=== PATIENT | male | born 1955 | race Caucasian/White ===

== ENCOUNTER → 2018-04-05 | Outpatient (CLI) | payer BC | END | disposition home or self-care (01) | LOC: ECHO 12:41 | DX: I08.2 Rheumatic disorders of both aortic and tricuspid valves (principal); R01.1 Cardiac murmur, unspecified | CPT/HCPCS: 93306 ==

== ENCOUNTER → 2019-08-27 | Outpatient (CLI) | payer BC ==
[2015-09-17 08:57] VITALS: BP 145/68
[~2019-08-27] MED LIST: ATOR20TA PO; DIVA500T2 PO; FOLI1TAB16 PO; PIOG30TA41 PO; RIVA10TA PO; VALS1TAB14 PO
--- NOTE | 2019-08-27 12:53 | CARD ---
MR#: [id number] Date of Study: 08/27/2019 Ordering Physician: JANICE MILES, Referring Physician: JANICE MILES, Tech: Isa Freeman APPROVED REPORT EXAM: Two-dimensional and M-mode echocardiogram with Doppler and color Doppler. Other Information Quality : AverageHR: 62bpm INDICATION Aortic Valve Disease RISK FACTORS Hypertension Hyperlipidemia Diabetes Smoking 2D DIMENSIONS RVDd2.3 (2.9-3.5cm)Left Atrium(2D)4.0 (1.6-4.0cm) IVSd0.9 (0.7-1.1cm)Aortic Root(2D)2.1 (2.0-3.7cm) LVDd5.2 (3.9-5.9cm)LVOT Diameter1.9 (1.8-2.4cm) PWd1.0 (0.7-1.1cm)LVDs3.9 (2.5-4.0cm) FS (%) 25.6 %SV66.0 ml LVEF(%)50.1 (>50%) Aortic Valve AoV Peak Fidel.369.9cm/sAoV VTI98.8cm AO Peak GR.51.6mmHgLVOT Peak Fidel.98.1cm/s AO Mean GR.34mmHg Mitral Valve MV E Upnwuwtb643.1cm/sMV DECEL [id number] MV A Qzdadwuk898.8cm/sE/A Ratio1.3 Pulmonary Valve PV Peak Raigkkwx08.8cm/s Tricuspid Valve TR P. Fypivtzi760qg/sRAP [id number] TR Peak Gr.62wqOvQUTW05eqSi LEFT VENTRICLE The left ventricle is normal size. There is borderline concentric left ventricular hypertrophy. The l eft ventricular systolic function is normal. The Ejection Fraction is 50-55%. There is normal LV segm ental wall motion. Transmitral Doppler flow pattern is Grade II-pseudonormal filling dynamics. RIGHT VENTRICLE The right ventricle is normal size. There is normal right ventricular wall thickness. The right ventr icular systolic function is normal. ATRIA The left atrium is moderately dilated. The right atrium is mildly dilated. The interatrial septum is intact with no evidence for an atrial septal defect or patent foramen ovale as noted on 2-D or Dopple r imaging. AORTIC VALVE The aortic valve is calcified and displays decreased opening. Doppler and Color Flow revealed trace a ortic regurgitation. Calculated aortic valve area is .7 cm2 with maximum pressure gradient of 55 mmHg and mean pressure gradient of 34 mmHg. Doppler and color-flow analysis revealed moderate aortic sten osis. MITRAL VALVE The mitral valve is normal in structure and function. There is no evidence of mitral valve prolapse. There is no mitral valve stenosis. Doppler and Color-flow revealed trace mitral regurgitation. TRICUSPID VALVE The tricuspid valve is normal in structure and function. Doppler and Color Flow revealed trace tricus pid regurgitation with an estimated PAP of 41 mmHg. There is no tricuspid valve prolapse or vegetatio n. PULMONIC VALVE The pulmonic valve is not well visualized. Doppler and Color Flow revealed no pulmonic valvular regur gitation. GREAT VESSELS The aortic root is normal in size. The IVC was not visualized. PERICARDIAL EFFUSION There is no evidence of significant pericardial effusion. Critical Notification Critical Value: No <Conclusion> The left ventricular systolic function is normal. The Ejection Fraction is 50-55%. Transmitral Doppler flow pattern is Grade II-pseudonormal filling dynamics. The left atrium is moderately dilated. Moderate aortic stenosis. Mean gradient 34 mm Hg. Trace mitral regurgitation. Trace tricuspid regurgitation with an estimated PAP of 41 mmHg. There is no evidence of significant pericardial effusion. Signed by : Rocco Jo, Electronically Approved : 08/27/2019 12:53:49
== END | disposition home or self-care (01) ==
LOC: ECHO 09:17
PROVIDERS: ATTEND Family Medicine
DX: I06.0 Rheumatic aortic stenosis (principal); I10 Essential (primary) hypertension; E78.5 Hyperlipidemia, unspecified; E11.9 Type 2 diabetes mellitus without complications; F17.200 Nicotine dependence, unspecified, uncomplicated
CPT/HCPCS: 93306